=== PATIENT | female | born 1970 | race Hispanic/Latino ===

== ENCOUNTER 2018-03-10 09:03 | Outpatient (CLI) | payer BC ==
--- NOTE | 2018-03-10 11:14 | Mammography Report ---
BILATERAL DIGITAL DIAGNOSTIC MAMMOGRAM WITH CAD: 03/10/18 09:03:00 CLINICAL: Routine screening.Breast cancer survivor status post right mastectomy with TRAM reconstruction. COMPARISON:03/13/11 FINDINGS: The left breast is heterogeneously dense with a stable fibroglandular pattern. Normal appearance of the right TRAM flap reconstruction. No mass, architectural distortion or suspicious calcifications. IMPRESSION: No mammographic evidence of malignancy. BI-RADS CATEGORY: 2 -- Benign RECOMMENDATION: Routine mammographic screening in one year. COMMENT: Patient follow-up letters are generated via our [employer] application.
== END 2018-03-10 09:04 | disposition home or self-care (01) ==
LOC: SPVWC 09:03
PROVIDERS: ATTEND Internal Medicine Hematology & Oncology
DX: Z08 Encounter for follow-up examination after completed treatment for malignant neoplasm (principal); Z85.3 Personal history of malignant neoplasm of breast; Z90.11 Acquired absence of right breast and nipple
CPT/HCPCS: 77066